=== PATIENT | female | born 1965 | race Caucasian/White ===

== ENCOUNTER 2022-08-19 13:34 | Outpatient (REF) | payer OTHER, SELFPAY ==
[2022-08-19 14:56] LABS: MANUAL DIFF FLAG NO
[2022-08-19 15:38] LABS: Basophils Absolute Auto 0.1 X10*3/uL (0.0-0.2); Basophils Percent Auto 1.2 % (0-2); Eosinophils Absolute Auto 0.1 X10*3/uL (0.0-0.4); Eosinophils Percent Auto 1.9 % (0-4); Hematocrit 42.4 % (37.0-47.0); Hemoglobin 14.4 g/dl (12.0-16.0); Imm Gran Abs Auto 0.01 X10*3/uL (0.00-0.03); Imm Gran Pct Auto 0.2 % (0.0-0.4); Lymphocytes Absolute Auto 1.5 X10*3/uL (1.2-4.9); Lymphocytes Percent Auto 35.7 % (20-40); Mean Corpuscular Hemoglobin 30.3 pg (27.0-33.0); Mean Corpuscular Volume 89.3 fL (80.0-98.0); Mean Platelet Volume 10.5 fL (9.4-12.3); Monocytes Absolute Auto 0.3 X10*3/uL (0.1-1.2); Monocytes Percent Auto 7.4 % (2-11); Neutrophils Absolute Auto 2.3 x10*3/uL (2.0-8.3); Neutrophils Percent Auto 53.6 % (45-73); Platelet Count 248 X10*3/uL (160-400); Red Blood Count 4.75 X10*6/uL (4.20-5.50); Red Cell Distribution Width 12.3 % (11.0-16.0); White Blood Count 4.3 X10*3/uL (4.8-10.8)
[2022-08-19 15:45] LABS: Appearance Urine Clear; Color Urine Yellow; Glucose Urine UA Negative (Negative); Leukocyte Esterase Urine Trace (Negative); Nitrite Urine Negative (Negative); UMIC TRIGGER UA YES; Urine Blood Negative (Negative); Urine Ketones Negative (Negative); Urine Protein Negative (Neg-Trace)
[2022-08-19 15:48] LABS: Bacteria Urine None Seen (None Seen); Hyaline Casts Urine 0-2 /LPF (0-2); RBC Urine 0-2 /HPF (0-2); Squamous Epithelial Cell Urine 0-2 /HPF (0-2); WBC Urine 0-5 /HPF (0-5)
[2022-08-19 15:59] LABS: Creatinine Urine 35.33 mg/dL; Total Protein Urine Random < 7 mg/dL (<12)
[2022-08-19 16:03] LABS: Alanine Aminotransferase 24 U/L (0-31); Albumin Level 4.4 g/dL (3.5-5.0); Alkaline Phosphatase 52 U/L (39-117); Anion Gap 11 (12-20); Aspartate Amino Transferase 26 U/L (5-31); Bilirubin Total 0.7 mg/dL (0.0-1.0); Blood Urea Nitrogen 14 mg/dL (9-16); C Reactive Protein < 0.04 mg/dL (< or = 0.50); Calcium 9.4 mg/dL (8.4-10.2); Carbon Dioxide 28 mmol/L (22-29); Chloride 107 mmol/L (96-108); Estimated Glomerular Filt Rate > 60; Glucose Random 85 mg/dL (60-115); Rheumatoid Factor < 13.0 IU/mL (<15.0); Sodium 142 mmol/L (135-145); Total Protein 6.7 g/dL (6.5-8.0)
[2022-08-19 16:23] LABS: Erythrocyte Sedimentation Rate 4 MM/HR (0-20)
[2022-08-20 07:44] LABS: HBS Num1 0.13 mIU/mL (0-7.99); HBc Num1 0.08 S/CO (0.00-0.79); HBsAGNum1 0.28 S/CO (0.00-0.99); Hepatitis A Antibody IgM 0.27 Index (0-0.79); Hepatitis B Core Antibody Nonreactive (Nonreactive); Hepatitis B Surface Antigen Negative (Negative); ~Hepatitis A Antibody IgM Nonreactive (Nonreactive); ~Hepatitis B Surface Antibody NONREACTIVE (Nonreactive); ~Hepatitis C Antibody Nonreactive (Nonreactive)
[2022-08-20 12:39] LABS: Anti DNA DS Antibody <1 IU/mL; Antibody to SS-A Antigen <1.0 NEG AI (<1.0 NEG); Antibody to SS-B Antigen <1.0 NEG AI (<1.0 NEG); SM/Ribonucleoprotein Ab <1.0 NEG AI (<1.0 NEG); Smith Protein <1.0 NEG AI (<1.0 NEG)
[2022-08-20 16:04] LABS: Cyclic Citrullinated Peptide <16 UNITS
[2022-08-20 18:19] LABS: Complement C3 84 mg/dL (83-193)
[2022-08-20 20:43] LABS: Thyroglobulin Antibodies 5 IU/mL (< or = 1)
[2022-08-21 07:39] LABS: Cardiolipin IgG Ab <2.0 GPL-U/mL; Cardiolipin IgM Ab <2.0 MPL-U/mL
[2022-08-21 11:03] LABS: Thyroid Peroxidase Antibodies 1 IU/mL (<9)
[2022-08-21 12:48] LABS: IgA 131 mg/dL (47-310); IgG 968 mg/dL (600-1640); IgM 161 mg/dL (50-300)
[2022-08-21 15:13] LABS: TS Negative Control Passed; TS Panel A 0; TS Panel B 0; TS Positive Control Passed; TSpotTB Negative (Negative)
[2022-08-22 13:08] LABS: Prot Elec - Albumin 4.3 g/dL (3.8-4.8); Prot Elec - Alpha1 0.2 g/dL (0.2-0.3); Prot Elec - Alpha2 0.6 g/dL (0.5-0.9); Prot Elec - Beta 1 0.4 g/dL (0.4-0.6); Prot Elec - Beta 2 0.2 g/dL (0.2-0.5); Prot Elec - Gamma 0.9 g/dL (0.8-1.7); Prot Elec - Total Protein 6.7 g/dL (6.1-8.1)
[2022-08-22 13:23] LABS: DNAds, Crithidia Antibody Negative (Negative)
[2022-08-22 23:09] LABS: PTT (LAC) Screen 34 sec (<=40)
[2022-08-25 19:53] LABS: Beta-2 Glycoprotein IgA <2.0 U/mL (<20.0); Beta-2 Glycoprotein IgG <2.0 U/mL (<20.0); Beta-2 Glycoprotein IgM <2.0 U/mL (<20.0)
[2022-08-28 06:48] LABS: Centromere Protein A Ab <11 SI (<11); Centromere Protein B Ab <11 SI (<11); Fibrillarin Ab <11 SI (<11); PM SCL 100 Ab <11 SI (<11); PM SCL 75 Ab <11 SI (<11); RNA Polymerase III RP11 Ab <11 SI (<11); RNA Polymerase III RP155 Ab <11 SI (<11); SCL-70 Extractable Nuclear Ab <11 SI (<11); Th-To Ab <11 SI (<11); U1 SNRNP RNP 70KD <11 SI (<11); U1 SNRNP RNP A <11 SI (<11); U1 SNRNP RNP C <11 SI (<11)
== END 2022-08-19 13:35 | disposition home or self-care (01) ==
LOC: HO.LAB 13:34
PROVIDERS: PCP Nurse Practitioner; Visit Provider Student in an Organized Health Care Education/Training Program
DX: Z11.7 Encounter for testing for latent tuberculosis infection (principal); Z11.59 Encounter for screening for other viral diseases; M34.9 Systemic sclerosis, unspecified; M32.9 Systemic lupus erythematosus, unspecified; D68.61 Antiphospholipid syndrome; M25.541 Pain in joints of right hand; E07.9 Disorder of thyroid, unspecified; R76.8 Other specified abnormal immunological findings in serum
CPT/HCPCS: 36415; 80053; 81001; 82550; 82784; 84156; 84165; 84182; 85025; 85597; 85613; 85652; 85730; 86140; 86146; 86147; 86160; 86200; 86225; 86235; 86255; 86334; 86376; 86431; 86481; 86704; 86706; 86709; 86800; 86803; 87340

== ENCOUNTER → 2022-09-17 12:57 | Outpatient (BNVA) | payer OTHER, SELFPAY | PROVIDERS: PCP Nurse Practitioner; Visit Provider Student in an Organized Health Care Education/Training Program | DX: Z13.89 Encounter for screening for other disorder (principal) ==

== ENCOUNTER 2023-02-27 11:39 | Outpatient (AMB) | payer OTHER, SELFPAY ==
[2023-02-27 11:41] VITALS: BP 112/64; PULSE 77; TEMP 36.6; O2SAT 99; BMI 24.7
--- NOTE | 2023-02-27 11:41 | A.OFFVIS_ITS ---
Intake Vital Signs 02/27/23 11:41 Height 5 ft 6 in Weight 152 lb 12.485 oz BMI 24.7 BP 112/64 Blood Pressure Location Rt brachial Position Sitting Pulse 77 Pulse Source Pulse Oximeter Temp 97.9 F Temp Source Skin Pulse Oximetry (%) 99 Intake Visit Reasons: DIANA +ve Intake Note: Pt seen today for follow up. 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 Has been taking hydroxychloroquine consistently for the last 5 months. Patient states that she feels about 25-30% overall in her fatigue, she has improved energy, swelling of her fingers has improved, rings are no longer tight. She states however that she continues to get good days and bad days, she has muscle pain and heaviness with use. She also gets intermittent puffiness below her eyes. Initial history: This is a 56-year-old female with a past medical history of dyslipidemia presents for evaluation of multiple complaints. Patient stated for the last 3 years she has had bilateral Achillis tendon pain and swelling. Pain and swelling are usually worse in the morning with stiffness lasting 10-15 minutes. She would also have bilateral ankle pain at the end of the day. Over the last year and half she noticed puffiness of her hands and fingers and difficulty putting her rings on. She would have morning stiffness of her hands lasting 5-10 minutes. She developed Raynaud's affecting her fingers over the past year, her fingers change color to white. She denies ever having Raynaud symptoms in the past. Patient remains quite active. She gets shortness of breath at rest, not with activity. She is able to do 2 flights of stairs without any shortness of breath. Denies GERD. No known family history of autoimmune rheumatic disease She developed a skin rash on her legs more than 6 months ago and saw her PCP in March 2022, prescribe doxycycline without improvement, she then saw Dermatology who did scraping and was diagnosed with a fungal infection, symptoms cleared with oral terbinafine and topical anti fungal cream. 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 Review of Systems Const Reports fatigue Eyes Reports no additional complaints Musc Reports arthralgias and Reports joint swelling Endo Reports fatigue Physical Exam Vital Signs: Last Vital Signs Temp 97.9 F 02/27/23 11:41 Pulse 77 02/27/23 11:41 BP 112/64 02/27/23 11:41 Pulse Ox 99 02/27/23 11:41 BMI result Body Mass Index 24.7 Const General: cooperative, healthy appearing and comfortable Nutritional Appearance: average body habitus Orientation/consciousness: patient oriented x3 Limitations: no limitations HEENT Head: Yes normocephalic and Yes atraumatic Resp Effort & Inspection: normal respiratory effort and able to speak in complete sentences GI Inspection: No distended Palpation (GI): Soft to palpation and nontender Neuro General: patient oriented x3 Extrem Other: Puffiness of fingers has resolved No swollen or tender joints in both hands, wrists, feet, MTPs, ankles. Negative MCP squeeze test and a negative MTP squeeze Right ring finger Nailfold capillaroscopy shows few dilated loops and parallel hemorrhages. Nailfold capillaroscopy normal otherwise Results Reviewed Results Reviewed: Labs 03/2022 CBC, CMP, CRP all normal TSH 5.12, slightly elevated Free T4 normal DIANA 1:640 nuclear speckled DIANA 1:1280 nuclear, homogeneous and nucleolar Assessment & Plan Assessment & Plan (1) Undifferentiated connective tissue disease: Comment: fatigue, arthralgias, puffy fingers, 1 finger with abnormal nailfold capillaroscopy, +++DIANA HCQ 09/18 effective Code(s): M35.9 - Systemic involvement of connective tissue, unspecified Plan: This is a 57-year-old female with UCTD who presents for follow-up. Doing better overall. Improved fatigue, puffy fingers resolved and no tender joints on exam Continue hydroxychloroquine 400 mg daily 5 days a week and 200 mg 2 days a week Follow-up in 6 months (2) Long-term use of hydroxychloroquine: Code(s): Z79.899 - Other nursing home (current) drug therapy Plan: Discussed risk of retinopathy with hydroxychloroquine. Referred patient to Ophthalmology for eye exam (3) Fibromyalgia: Code(s): M79.7 - Fibromyalgia Plan: Majority of patient's complaints are likely due to fibromyalgia Discussed management of fibromyalgia with patient. Is a noninflammatory, non- autoimmune central afferent processing disorder leading to a diffuse pain syndrome. I suggested that patient try to address her underlying psychiatric issues, anxiety/depression. I suggested evaluation by a therapist and/or a psychiatrist. Try to follow sleep hygiene practices. Consider referral for a sleep study to rule out FLAQUITO. Patient would benefit from increased physical activity, either through formal physical therapy or by joining a gym. Advised patient that she should start activity slowly and increase as tolerated. Consider low-impact exercises such as walking, swimming, aqua therapy stretching, yoga. 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
== END 2023-02-27 12:17 | disposition home or self-care (01) ==
PROVIDERS: PCP Nurse Practitioner; Visit Provider Student in an Organized Health Care Education/Training Program
DX: M35.89 Other specified systemic involvement of connective tissue (principal); Z79.899 Other long term (current) drug therapy; M79.7 Fibromyalgia
CPT/HCPCS: 99214

== ENCOUNTER → 2023-02-27 11:39 | Outpatient (BNVA) | payer OTHER, SELFPAY | PROVIDERS: PCP Nurse Practitioner; Visit Provider Student in an Organized Health Care Education/Training Program ==

== ENCOUNTER 2023-09-01 09:46 | Outpatient (AMB) | payer OTHER, SELFPAY ==
[2023-09-01 09:54] VITALS: BP 108/64; PULSE 66; TEMP 36.2; O2SAT 98; BMI 24.3
--- NOTE | 2023-09-01 09:54 | MHC.OFFVIS ---
Intake Vital Signs 09/01/23 09:54 Height 5 ft 6 in Weight 150 lb 12.739 oz BMI 24.3 BP 108/64 Blood Pressure Location Rt brachial Position Sitting Pulse 66 Pulse Source Pulse Oximeter Temp 97.2 F Temp Source Skin Pulse Oximetry (%) 98 Oxygen Delivery Method Room Air Intake Visit Reasons: UCTD Intake Note: Patient last seen 02/27/23 presents today for follow up and test results. Would like to further discuss hydroxychloroquine. 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 She has been doing quite well overall. She has been doing quite well overall. Patient states that she was not able to be compliant with hydroxychloroquine, she would forget it most of the time so she decided to stop it completely about a month ago. She has not had any recurrence of her symptoms. She denies any joint pain swelling or skin rashes. She followed up with Ophthalmology and cleared to continue hydroxychloroquine Initial history: This is a 56-year-old female with a past medical history of dyslipidemia presents for evaluation of multiple complaints. Patient stated for the last 3 years she has had bilateral Achillis tendon pain and swelling. Pain and swelling are usually worse in the morning with stiffness lasting 10-15 minutes. She would also have bilateral ankle pain at the end of the day. Over the last year and half she noticed puffiness of her hands and fingers and difficulty putting her rings on. She would have morning stiffness of her hands lasting 5-10 minutes. She developed Raynaud's affecting her fingers over the past year, her fingers change color to white. She denies ever having Raynaud symptoms in the past. Patient remains quite active. She gets shortness of breath at rest, not with activity. She is able to do 2 flights of stairs without any shortness of breath. Denies GERD. No known family history of autoimmune rheumatic disease She developed a skin rash on her legs more than 6 months ago and saw her PCP in March 2022, prescribe doxycycline without improvement, she then saw Dermatology who did scraping and was diagnosed with a fungal infection, symptoms cleared with oral terbinafine and topical anti fungal cream. 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 Review of Systems Const Denies weakness Musc Denies arthralgias and Denies joint swelling Skin/Breast Denies rash Neuro Denies weakness Physical Exam Vital Signs: Last Vital Signs Temp 97.2 F 09/01/23 09:54 Pulse 66 09/01/23 09:54 BP 108/64 09/01/23 09:54 Pulse Ox 98 09/01/23 09:54 Oxygen Delivery Method Room Air 09/01/23 09:54 BMI result Body Mass Index 24.3 Const General: cooperative, healthy appearing and comfortable Nutritional Appearance: average body habitus Orientation/consciousness: patient oriented x3 Limitations: no limitations HEENT Head: Yes normocephalic and Yes atraumatic Resp Effort & Inspection: normal respiratory effort and able to speak in complete sentences GI Inspection: No distended Palpation (GI): Soft to palpation and nontender Neuro General: patient oriented x3 Extrem Other: Puffiness of fingers has resolved Mild reddish discoloration of her hands compared to her upper extremities No fibromyalgia tender points today No swollen or tender joints in both hands, wrists, feet, MTPs, ankles. Negative MCP squeeze test and a negative MTP squeeze Today nailfold capillaroscopy shows mildly dilated loop right 5th finger. Otherwise normal nailfold capillaroscopy Results Reviewed Results Reviewed: Labs 03/2022 CBC, CMP, CRP all normal TSH 5.12, slightly elevated Free T4 normal DIANA 1:640 nuclear speckled DIANA 1:1280 nuclear, homogeneous and nucleolar Assessment & Plan Assessment & Plan (1) Undifferentiated connective tissue disease: Comment: fatigue, arthralgias, puffy fingers, 1 finger with abnormal nailfold capillaroscopy, +++DIANA HCQ 09/18 effective. Self DC was feeling well Code(s): M35.9 - Systemic involvement of connective tissue, unspecified Plan: This is a 57-year-old female with UCTD who presents for follow-up. Self discontinued hydroxychloroquine about a month ago due to inability to be consistently compliant. She has not had any recurrence of her symptoms. Re-evaluate in 6 months (2) Fibromyalgia: Code(s): M79.7 - Fibromyalgia Plan: Symptoms improving. Her sleep improved with following some sleep hygiene practices. Plan I spent 15 minutes reviewing patient's chart, evaluating patient, counseling patient and documenting in the chart Coding Level of Care Code Est Pt Level 3 (04244) Diagnoses Undifferentiated connective tissue disease M35.9 Fibromyalgia M79.7
== END 2023-09-01 10:20 | disposition home or self-care (01) ==
PROVIDERS: PCP Nurse Practitioner; Visit Provider Student in an Organized Health Care Education/Training Program
DX: M35.89 Other specified systemic involvement of connective tissue (principal); M79.7 Fibromyalgia
CPT/HCPCS: 99213

== ENCOUNTER → 2023-09-01 09:46 | Outpatient (BNVA) | payer OTHER, SELFPAY | PROVIDERS: PCP Nurse Practitioner; Visit Provider Student in an Organized Health Care Education/Training Program ==

== ENCOUNTER 2024-04-14 10:15 | Outpatient (AMB) | payer OTHER, SELFPAY ==
--- NOTE | 2024-04-14 10:20 | A.OFFVIS_ITS ---
Vital Signs 04/14/24 10:22 Height 5 ft 6 in Weight 155 lb 10.342 oz BMI 25.1 BP 115/62 Blood Pressure Location Rt brachial Position Sitting Pulse 57 Pulse Source Pulse Oximeter Pulse Oximetry (%) 99 Oxygen Delivery Method Room Air Intake Visit Reasons: UCTD/lvm Intake Note: Patient presents for UCTD. Allergies No Known Allergies Allergy (Verified 04/14/24 10:23) Medication List - Last Reconciled 04/14/24 by Angela Calhoun MD cholecalciferol (vitamin D3) 25 mcg PO DAILY multivitamin 1 tab PO DAILY HPI Comments Details: 58-year-old female with UCTD and fibromyalgia returns for follow-up. She states that she has been doing reasonably well overall. No new symptoms. She walks for 40 minutes daily and she recently took up strengthening. Weight lifting with dumbbells. She states that she gets sore after working out. Initial history: This is a 56-year-old female with a past medical history of dyslipidemia presents for evaluation of multiple complaints. Patient stated for the last 3 years she has had bilateral Achillis tendon pain and swelling. Pain and swelling are usually worse in the morning with stiffness lasting 10-15 minutes. She would also have bilateral ankle pain at the end of the day. Over the last year and half she noticed puffiness of her hands and fingers and difficulty putting her rings on. She would have morning stiffness of her hands lasting 5-10 minutes. She developed Raynaud's affecting her fingers over the past year, her fingers change color to white. She denies ever having Raynaud symptoms in the past. Patient remains quite active. She gets shortness of breath at rest, not with activity. She is able to do 2 flights of stairs without any shortness of breath. Denies GERD. No known family history of autoimmune rheumatic disease She developed a skin rash on her legs more than 6 months ago and saw her PCP in March 2022, prescribe doxycycline without improvement, she then saw Dermatology who did scraping and was diagnosed with a fungal infection, symptoms cleared with oral terbinafine and topical anti fungal cream. 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 Female Reproductive History Menstrual Total pregnancies: 2 Ab induced: 0 Ab spontaneous: 0 Review of Systems Const Denies weakness Musc Denies arthralgias and Denies joint swelling Skin/Breast Denies rash Neuro Denies weakness Physical Exam Vital Signs: Last Vital Signs Pulse 57 04/14/24 10:22 BP 115/62 04/14/24 10:22 Pulse Ox 99 04/14/24 10:22 Oxygen Delivery Method Room Air 04/14/24 10:22 BMI result Body Mass Index 25.1 Const General: cooperative, healthy appearing and comfortable Nutritional Appearance: average body habitus Orientation/consciousness: patient oriented x3 Limitations: no limitations HEENT Head: Yes normocephalic and Yes atraumatic Resp Effort & Inspection: normal respiratory effort and able to speak in complete se ntences GI Inspection: No distended Palpation (GI): Soft to palpation and nontender Neuro General: patient oriented x3 Extrem Other: No fibromyalgia tender points today No swollen or tender joints in both hands, wrists, feet, MTPs, ankles. Negative MCP squeeze test and a negative MTP squeeze Today nailfold capillaroscopy shows mildly dilated loop right 5th finger. Otherwise normal nailfold capillaroscopy Results Reviewed Results Reviewed: Labs 03/2022 CBC, CMP, CRP all normal TSH 5.12, slightly elevated Free T4 normal DIANA 1:640 nuclear speckled DIANA 1:1280 nuclear, homogeneous and nucleolar Assessment & Plan Assessment & Plan (1) Undifferentiated connective tissue disease: Comment: fatigue, arthralgias, puffy fingers, 1 finger with abnormal nailfold capillaroscopy, +++DIANA HCQ 09/18 effective. Self DC 07/2023 was feeling well Code(s): M35.9 - Systemic involvement of connective tissue, unspecified Category: Medical Plan: This is a 58-year-old female with UCTD who presents for follow-up. She is not on DMARDs. Clinically there no concerning symptoms of an underlying autoimmune rheumatic disease on exam at this time. Symptoms at this time rather consistent with fibromyalgia Discussed symptoms and signs that are suggestive of active autoimmune rheumatic illness. Advised patient to return as needed. (2) Fibromyalgia: Code(s): M79.7 - Fibromyalgia Category: Medical Plan: Fairly stable. Walks for 40 minutes daily and does strength training. Plan I spent 15 minutes reviewing patient's chart, evaluating patient, counseling patient and documenting in the chart Coding Level of Care Code Est Pt Level 3 (02674) Diagnoses Undifferentiated connective tissue disease M35.9 Fibromyalgia M79.7
[2024-04-14 10:22] VITALS: BP 115/62; PULSE 57; O2SAT 99; BMI 25.1
== END 2024-04-14 10:45 | disposition home or self-care (01) ==
PROVIDERS: PCP Nurse Practitioner; Visit Provider Student in an Organized Health Care Education/Training Program
DX: M35.89 Other specified systemic involvement of connective tissue (principal); M79.7 Fibromyalgia
CPT/HCPCS: 99212

== ENCOUNTER → 2024-04-14 10:15 | Outpatient (BNVA) | payer OTHER, SELFPAY | PROVIDERS: PCP Nurse Practitioner; Visit Provider Student in an Organized Health Care Education/Training Program ==